=== PATIENT | female | born 1990 | race American Indian/Alaskan Native ===

== ENCOUNTER 2021-11-09 11:34 | Emergency (ER) | payer SELFPAY ==
[2021-11-09] MEDS ORDERED: FAMOTIDINE 20 MG/2 ML INJ IV ONE (11:43)
[2021-11-09] MEDS ORDERED: diphenhydrAMINE 50 MG/ML VIAL IV ONE (11:43)
[2021-11-09] MEDS ORDERED: ALBUTEROL 2.5 MG/3 ML NEBU IH ONE (11:47)
--- NOTE | 2021-11-09 11:47 | Emergency Department Report ---
HPI - General Chief Complaint: Allergic Reaction Time Seen by Provider: 11/09/21 11:43 ED Review of Systems ROS: Stated complaint: EDITH Other details as noted in HPI Critical care attestation.: If time is entered above; I have spent that time in minutes in the direct care of this critically ill patient, excluding procedure time. ED Disposition Condition: Stable
--- NOTE | 2021-11-09 11:51 | Emergency Department Report ---
ED Allergic Reaction HPI - General Chief complaint: Allergic Reaction Stated complaint: EDITH Time Seen by Provider: 11/09/21 11:43 Source: patient Mode of arrival: Stretcher Limitations: No Limitations - History of Present Illness Initial Comments: Patient is 31 years old female with no significant past medical history. Patient brought to the emergency room via EMS from home for evaluation of allergic reaction that happened this morning. Patient stated that she bought a guinea pig yesterday. She think this is most likely from him. Patient is comp laining of shortness of breath audible wheezing and mild difficulty swallowing. Patient received albuterol, Solu-Medrol, magnesium sulfate and Benadryl by EMS. Upon arrival to the ER patient stated that she is feeling better. Oxygen saturation is 98% on room air. Exam showed diffuse wheezing. No oral lingual swelling. I added Pepcid and another dose of albuterol. MD Complaint: allergic reaction -: This morning Exposure: other Symptoms: difficulty swallowing, difficulty breathing Severity: moderate Treatment Prior to Arrival: benadryl, bronchodilator, steroids Previous Allergy History: none - Related Data Allergies Allergy/AdvReac Type Severity Reaction Status Date / Time ibuprofen AdvReac Unknown Verified 11/09/21 11:37 ED Review of Systems ROS: Stated complaint: EDITH Other details as noted in HPI Comment: All other systems reviewed and negative Constitutional: denies: chills, fever Respiratory: shortness of breath, wheezing. denies: cough, SOB with exertion, SOB at rest Cardiovascular: denies: chest pain, palpitations Gastrointestinal: denies: abdominal pain, nausea, vomiting Musculoskeletal: denies: back pain Neurological: denies: headache, weakness ED Physical Exam - General Limitations: No Limitations General appearance: alert, in no apparent distress - Head Head exam: Present: atraumatic, normocephalic, normal inspection - Eye Eye exam: Present: normal appearance - ENT ENT exam: Present: normal exam, normal orophraynx, mucous membranes moist - Respiratory Respiratory exam: Present: wheezes. Absent: rales, rhonchi, accessory muscle use, decreased breath sounds, prolonged expiratory - Cardiovascular Cardiovascular Exam: Present: regular rate, normal rhythm, normal heart sounds - GI/Abdominal GI/Abdominal exam: Present: soft, normal bowel sounds. Absent: distended, tenderness, guarding, rebound, rigid, organomegaly, mass, bruit, pulsatile mass, hernia - Extremities Exam Extremities exam: Present: normal inspection, full ROM, normal capillary refill. Absent: tenderness - Back Exam Back exam: Present: normal inspection, full ROM. Absent: CVA tenderness (R), CVA tenderness (L) - Neurological Exam Neurological exam: Present: alert, oriented X3, CN II-XII intact, normal gait, reflexes normal. Absent: motor sensory deficit - Psychiatric Psychiatric exam: Present: normal mood - Skin Skin exam: Present: warm, intact, normal color ED Course Vital Signs 11/09/21 11/09/21 11/09/21 11:42 11:46 12:00 Pulse Rate 70 82 72 Respiratory 18 20 19 Rate Blood Pressure 123/82 O2 Sat by Pulse 100 98 Oximetry 11/09/21 11/09/21 11/09/21 12:19 12:31 12:45 Pulse Rate 83 84 Respiratory 18 26 H Rate Blood Pressure 123/81 123/81 O2 Sat by Pulse 97 99 98 Oximetry 11/09/21 13:01 Pulse Rate 88 Respiratory 21 Rate Blood Pressure 138/87 O2 Sat by Pulse 96 Oximetry ED Medical Decision Making - Medical Decision Making Patient is 31 years old female with no significant past medical history. Patient brought to the emergency room via EMS from home for evaluation of allergic reaction that happened this morning. Patient stated that she bought a guinea pig yesterday. She think this is most likely from him. Patient is complaining of shortness of breath audible wheezing and mild difficulty swallowing. Patient received albuterol, Solu-Medrol, magnesium sulfate and Benadryl by EMS. Upon arrival to the ER patient stated that she is feeling better. Oxygen saturation is 98% on room air. Exam showed diffuse wheezing. No oral lingual swelling. I added Pepcid and another dose of albuterol. Patient stated that she is feeling much better. No difficulty breathing or difficulty swallowing. Patient given prescription for prednisone, Benadryl and Pepcid. Patient also given EpiPen. Patient advised to follow-up with her primary doctor in the next 2 to 3 days and to return to the ER if she develop any new symptoms. Critical care attestation.: If time is entered above; I have spent that time in minutes in the direct care of this critically ill patient, excluding procedure time. ED Disposition Clinical Impression: Acute allergic reaction Disposition: HOME / SELF CARE / HOMELESS Is pt being admited?: No Condition: Stable Instructions: Allergies, Adult, [id number] Referrals: PRIMARY CARE,MD [Primary Care Provider] - 3-5 Days
[2021-11-09 14:38] VITALS: BP 124/82
== END 2021-11-09 14:44 | disposition home or self-care (01) ==
LOC: ED 11:34
DX: T78.40XA Allergy, unspecified, initial encounter (principal); Z88.6 Allergy status to analgesic agent; Z79.899 Other long term (current) drug therapy; X58.XXXA Exposure to other specified factors, initial encounter
CPT/HCPCS: 94640; 96374; 96375; 99283; J1200; J3490

== ENCOUNTER 2022-01-11 15:12 | Inpatient (IN) | payer MEDICAID, OTHER ==
[2022-01-11] MEDS ORDERED: MORPHINE 4 MG/1 ML INJ ONE (15:21)
[2022-01-11] MEDS ORDERED: ONDANSETRON 4 MG/2 ML INJ ONE (15:24)
--- NOTE | 2022-01-11 15:36 | Emergency Department Report ---
ED Animal Bite HPI - General Chief Complaint: Animal Bite Stated Complaint: SNAKE BITE Time Seen by Provider: 01/11/22 15:20 Source: patient, family Mode of arrival: Ambulatory Limitations: No Limitations - History of Present Illness Initial Comments: 31 yo F brought in by EMS with snake bite at her animal [employer] store. According to patient someone brought in a small snake caught in the yard and wanted it to be identified. Pt opened the jar picked up the snake at its tail to identify whether male or female but unfortunately the snake turned around and bit her wrist. Bleeding is minimal due to direct pressure. The incidence occurred about an hour before she present to the ED. She now c/o swelling with pain. Swelling started at the point of bite and now spreading to her elbow. She denies any sob or palpitation or chest pain. No other modifying or associated factors. MD Complaint: animal bite - Related Data Previous Rx's Medication Instructions Recorded Last Taken Type EPINEPHrine [Epipen] 0.3 mg IJ ONCE #1 11/09/21 Unknown Rx Famotidine [Pepcid] 40 mg PO QHS #5 tablet 11/09/21 Unknown Rx Prednisone [predniSONE 10 mg 10 mg PO .TAPER #1 tab.ds.pk 11/09/21 Unknown Rx (6-Day Pack, 21 Tabs)] diphenhydrAMINE [Benadryl CAP] 25 mg PO Q8HR PRN #20 capsule 11/09/21 Unknown Rx Allergies Allergy/AdvReac Type Severity Reaction Status Date / Time ibuprofen AdvReac Unknown Verified 01/11/22 15:26 ED Review of Systems ROS: Stated complaint: SNAKE BITE Other details as noted in HPI Comment: All other systems reviewed and negative Musculoskeletal: arthralgia, myalgia (right forearm swelling with pain ) ED Past Medical Hx - Past Medical History Previous Medical History?: No - Surgical History Past Surgical History?: Yes Additional Surgical History: , T&A - Social History Smoking Status: Never Smoker Substance Use Type: Marijuana - Medications Home Medications: Home Medications Medication Instructions Recorded Confirmed Last Taken Type EPINEPHrine [Epipen] 0.3 mg IJ ONCE #1 11/09/21 Unknown Rx Famotidine [Pepcid] 40 mg PO QHS #5 tablet 11/09/21 Unknown Rx Prednisone [predniSONE 10 mg 10 mg PO .TAPER #1 tab.ds.pk 11/09/21 Unknown Rx (6-Day Pack, 21 Tabs)] diphenhydrAMINE [Benadryl CAP] 25 mg PO Q8HR PRN #20 capsule 11/09/21 Unknown Rx ED Physical Exam - General Limitations: No Limitations General appearance: alert, in no apparent distress - ENT ENT exam: Present: normal exam, normal orophraynx, mucous membranes moist - Neck Neck exam: Present: normal inspection, full ROM - Respiratory Respiratory exam: Present: normal lung sounds bilaterally. Absent: respiratory distress, accessory muscle use - Cardiovascular Cardiovascular Exam: Present: regular rate, normal rhythm, normal heart sounds - GI/Abdominal GI/Abdominal exam: Present: soft, normal bowel sounds. Absent: tenderness - Extremities Exam Extremities exam: Present: tenderness (right media aspect of wrist ) - Back Exam Back exam: Absent: tenderness - Neurological Exam Neurological exam: Present: alert, oriented X3 - Psychiatric Psychiatric exam: Present: normal mood - Skin Skin exam: Present: warm, normal color ED Course Vital Signs 01/11/22 01/11/22 01/11/22 15:16 15:33 15:38 Temperature 98.9 F Pulse Rate 100 H 80 Respiratory 20 10 L 12 Rate Blood Pressure Blood Pressure [Left] Blood Pressure 113/71 [Right] O2 Sat by Pulse 99 98 98 Oximetry 01/11/22 01/11/22 01/11/22 15:46 16:00 16:16 Temperature Pulse Rate 80 78 69 Respiratory 14 29 H 13 Rate Blood Pressure Blood Pressure [Left] Blood Pressure [Right] O2 Sat by Pulse 93 93 96 Oximetry 01/11/22 01/11/22 01/11/22 16:30 16:46 17:00 Temperature Pulse Rate 117 H 80 77 Respiratory 42 H 16 17 Rate Blood Pressure Blood Pressure [Left] Blood Pressure [Right] O2 Sat by Pulse 94 93 94 Oximetry 01/11/22 01/11/22 01/11/22 17:16 17:30 17:54 Temperature Pulse Rate 77 76 86 Respiratory 11 L 14 19 Rate Blood Pressure 92/52 99/58 99/58 Blood Pressure [Left] Blood Pressure [Right] O2 Sat by Pulse 99 96 Oximetry 01/11/22 01/11/22 01/11/22 18:00 18:16 18:30 Temperature Pulse Rate 81 87 93 H Respiratory 13 14 15 Rate Blood Pressure 110/77 121/82 118/82 Blood Pressure [Left] Blood Pressure [Right] O2 Sat by Pulse 98 98 97 Oximetry 01/11/22 01/11/22 01/11/22 18:46 19:00 19:16 Temperature Pulse Rate 72 77 81 Respiratory 13 14 12 Rate Blood Pressure 123/86 107/68 93/57 Blood Pressure [Left] Blood Pressure [Right] O2 Sat by Pulse 96 95 93 Oximetry 01/11/22 01/11/22 01/11/22 19:30 19:46 20:00 Temperature Pulse Rate 80 82 76 Respiratory 17 17 12 Rate Blood Pressure 102/51 103/57 92/44 Blood Pressure [Left] Blood Pressure [Right] O2 Sat by Pulse 97 96 94 Oximetry 01/11/22 01/11/22 01/11/22 20:16 20:46 21:20 Temperature Pulse Rate 74 75 87 Respiratory 13 14 11 L Rate Blood Pressure 101/46 95/55 101/73 Blood Pressure [Left] Blood Pressure [Right] O2 Sat by Pulse 96 97 Oximetry 01/11/22 01/11/22 21:30 21:52 Temperature Pulse Rate 84 87 Respiratory 18 11 L Rate Blood Pressure 98/73 Blood Pressure 101/73 [Left] Blood Pressure [Right] O2 Sat by Pulse 99 99 Oximetry - Reevaluation(s) Reevaluation #1: 01/11/22 15:45 here with right wrist snake bite-- with appreciable swellings and pain to the mid elbow-- will go ahead and irrigate the site with normal saline, given Morphine 4 mg IV x 1 for pain and zofran for pain-- Poison control consulted -- and -did not recommend given antivenom at this point since the bite was about an hour ago and the swelling still not at the elbow at this time. They wanted patient monitor however, and to order CBC,CMP, Coag level and fibrinogen and CPK and to have this repeated in 6 hours. They also suggested checking the swelling and circumference of the swelling every 15 minutes. 01/11/22 15:53 Reevaluation #2: 01/11/22 16:32 Noted pain and swelling spreading to the elbow and Crofab reordered immediately and poison control updated. She required that I call to update her when the initial 4 vial is completed. Reevaluation #3: 01/11/22 16:40 Shortly after started the vial of Crofab patient reports itching and became tachycardic. An ekg ordered and was given Benadryl 50 mg Iv x 1-- Reevaluation #4: 01/11/22 18:52 Got a call from the poison control for update-- pt is sleeping at this point, with improvement in her swelling no progressing pass the elbow. She has completed the initial 4 vial of Crofab. Poison control emphasis the need for maintenance dose 2 vial at 6 hours, then 2 vials at 12 hours and then 2 vials at 18 hours and patient needed to be monitored for 6-8 hours after completion of all vials. Dr Fairbanks consulted and he accept patient for further evaluation and treatment. Critical Care Time: Yes Critical care time in (mins) excluding proc time.: 60 Critical care attestation.: If time is entered above; I have spent that time in minutes in the direct care of this critically ill patient, excluding procedure time. This patient present with snake bite with bite on the wrist and with appreciable swellings and became tachycardia and was started on Crofab and due to high probability of clinically significant, life threatening deterioration, this patient required my highest level of preparedness to intervene emergently and I personally spent this critical care time directly and personally managing this patient. This critical care time included obtaining a history; examining this patient; pulse oximetry ; ordering and review of studies ; arranging urgent treatment with development of a management plan ; evaluation of patient's response to treatment ; frequent reassessment ; and, discussion with other providers. This critical care time was performed to assess and manage the high probability of imminent, life-threatening deterioration that could result in multiple organ damage if not done in a timely fashion. Critical Care Time: 60 ED Disposition Clinical Impression: Snake bites Qualifiers: Encounter type: initial encounter Qualified Code(s): W59.11XA - Bitten by nonvenomous snake, initial encounter Disposition: ADMITTED INPATIENT Is pt being admited?: Yes Does the pt Need Aspirin: No Condition: Stable Time of Disposition: 23:41
[2022-01-11] MEDS ORDERED: ONDANSETRON 4 MG/2 ML INJ IV ONE (15:52)
[2022-01-11] MEDS ORDERED: MORPHINE 4 MG/1 ML INJ IV ONE (15:52)
[2022-01-11] MEDS ORDERED: HYDROmorphone 0.5 MG/0.5 ML INJ IV ONE (15:54)
[2022-01-11] MEDS ORDERED: [UNRECOGNIZED DRUG - OTHER] IV ONE ×2 (16:00→17:00)
[2022-01-11] MEDS ORDERED: SODIUM CHLORIDE 0.9% 1000 ML 1,000 ML IV ONE (16:00)
[2022-01-11] MEDS ORDERED: SODIUM CHLORIDE IV ONE ×2 (16:00→17:00)
[2022-01-11] MEDS ORDERED: diphenhydrAMINE 50 MG/ML VIAL ONE (16:25)
[2022-01-11 16:42] LABS: Basophils # (Auto) 0.1 K/mm3 (0.0-0.1); Basophils % (Auto) 0.8 % (0.0-1.8); Eosinophils # (Auto) 0.3 K/mm3 (0.0-0.4); Eosinophils % (Auto) 3.5 % (0.0-4.3); Hemoglobin 13.2 gm/dl (10.1-14.3); Lymphocytes # (Auto) 2.3 K/mm3 (1.2-5.4); Lymphocytes % (Auto) 30.4 % (13.4-35.0); Mean Corpuscular HGB Conc 34 % (30-34); Mean Corpuscular Volume 97 fl (79-97); Monocytes # (Auto) 0.5 K/mm3 (0.0-0.8); Platelet Count 249 K/mm3 (140-440); Red Cell Distribution Width 13.7 % (13.2-15.2)
[2022-01-11 16:54] LABS: INR 0.97 (0.87-1.13)
[2022-01-11 16:55] LABS: Partial Thromboplastin Time 28.5 Sec. (24.2-36.6)
[2022-01-11 17:07] LABS: Alanine Aminotransferase 12 units/L (7-56); Albumin 4.1 g/dL (3.9-5); Blood Urea Nitrogen 16 mg/dL (7-17); Calcium 9.1 mg/dL (8.4-10.2); Hemolysis Index 5
[2022-01-11 17:09] LABS: BUN/Creatinine Ratio 23
[2022-01-11] MEDS ORDERED: ACETAMINOPHEN 325 MG TAB PO PRN ×2 (18:58→20:20)
[2022-01-11] MEDS ORDERED: MORPHINE 2 MG/1 ML INJ IV PRN (18:58)
[2022-01-11] MEDS ORDERED: METOCLOPRAMIDE 10 MG/2 ML INJ IV PRN (20:20)
[2022-01-11] MEDS ORDERED: ONDANSETRON 4 MG/2 ML INJ IV PRN (20:20)
--- NOTE | 2022-01-11 20:31 | History and Physical Report ---
History of Present Illness Date of examination: 01/11/22 Date of admission: 01/11/2022 Chief complaint: [place] snake bite History of present illness: 31 yo F brought in by EMS with snake bite at her animal pet store. According to patient someone brought a small snake caught in the yard. The snake was in a glass jar and wanted it to be identified. Pt opened the jar picked up the snake at its tail to identify whether male or female but unfortunately the snake t urned around and bit her Rt wrist. Bleeding is minimal due to direct pressure. The incidence occurred about an hour before she present to the ED. She now c/o swelling with pain. Swelling started at the point of bite and now spreading to her elbow. She denies any sob or palpitation or chest pain. No other modifying or associated factors. MD Complaint: animal bite ED course: Poison control was contacted and the recommendations for infusion of CroFab (antivenom )was given initially repeated by another CroFab in 30 minutes the CroFab sequences were reordered as per the poison control schedule suggestion. Recommendations were faxed and placed on the chart. Epinephrine and Benadryl were given. Patient lying comfortably and texting her friends. Patient is nonchalant - Past Medical History --Previous Medical History?: No - Surgical History --Past Surgical History?: Yes --Additional Surgical History: , T&A -Family history --Htn - Social History Smoking Status: Never Smoker Substance Use Type: Marijuana - Medications Home Medications: Home Medications Medication Instructions Recorded Confirmed Last Taken Type EPINEPHrine [Epipen] 0.3 mg IJ ONCE #1 11/09/21 Unknown Rx Famotidine [Pepcid] 40 mg PO QHS #5 tablet 11/09/21 Unknown Rx Prednisone [predniSONE 10 mg 10 mg PO .TAPER #1 tab.ds.pk 11/09/21 Unknown Rx (6-Day Pack, 21 Tabs)] diphenhydrAMINE [Benadryl CAP] 25 mg PO Q8HR PRN #20 capsule 11/09/21 Unknown Rx Review of Systems ROS: Constitutional no weight loss or weight gain no fever or chills HEENT no sore throat no post nasal drip no diplopia Neck no neck stiffness no lymph gland enlargement Chest and lungs no shortness of breath cough or wheezing CVS no chest pain no diaphoresis no palpitations GI no nausea no vomiting no diarrhea Genitourinary system no dysuria no flank pain Musculoskeletal system swelling of the right hand up to the mid forearm. 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 Skin no rash no itching Psychiatric no depression no homicidal or suicidal tendencies Hematologic no lymphedema or bruising Endocrine no polydipsia no polyuria no cold intolerance no heat intolerance Medications and Allergies Allergies Allergy/AdvReac Type Severity Reaction Status Date / Time ibuprofen AdvReac Unknown Verified 01/11/22 15:26 Home Medications Medication Instructions Recorded Confirmed Last Taken Type EPINEPHrine [Epipen] 0.3 mg IJ ONCE #1 11/09/21 Unknown Rx Famotidine [Pepcid] 40 mg PO QHS #5 tablet 11/09/21 Unknown Rx Prednisone [predniSONE 10 mg 10 mg PO .TAPER #1 tab.ds.pk 11/09/21 Unknown Rx (6-Day Pack, 21 Tabs)] diphenhydrAMINE [Benadryl CAP] 25 mg PO Q8HR PRN #20 capsule 11/09/21 Unknown Rx Active Meds: Active Medications Acetaminophen (Acetaminophen 325 Mg Tab) 650 mg PO Q6H PRN PRN Reason: Pain MILD(1-3)/Fever >100.5/HUSSEIN Morphine Sulfate (Morphine 2 Mg/1 Ml Inj) 2 mg IV Q4H PRN PRN Reason: Pain, Moderate (4-6) Sodium Chloride (Sodium Chloride 0.9% 10 Ml Flush Syringe) 10 ml IV BID HOLLY Sodium Chloride (Sodium Chloride 0.9% 10 Ml Flush Syringe) 10 ml IV PRN PRN PRN Reason: LINE FLUSH Exam - Constitutional Vitals: Temp Pulse Resp BP Pulse Ox 98.9 F 74 13 101/46 96 01/11/22 15:16 01/11/22 20:16 01/11/22 20:16 01/11/22 20:16 01/11/22 20:16 General appearance: Present: no acute distress, well-nourished - EENT Eyes: Present: PERRL ENT: hearing intact, clear oral mucosa - Neck Neck: Present: supple, normal ROM - Respiratory Respiratory effort: normal Respiratory: bilateral: CTA - Cardiovascular Heart rate: 78 Rhythm: regular Heart Sounds: Present: S1 & S2. Absent: rub, click - Extremities Extremities: pulses symmetrical, No edema, abnormal (Right hand and right forearm swollen on the dorsal aspect up to distal one third of the forearm the amount of swelling was marked to see the progression or regression) Extremity abnormal: other Peripheral Pulses: within normal limits - Abdominal General gastrointestinal: Present: soft, non-tender, non-distended, normal bowel sounds Female genitourinary: Present: normal - Integumentary Integumentary: Present: clear, warm, dry - Musculoskeletal Musculoskeletal: gait normal, strength equal bilaterally - Psychiatric Psychiatric: appropriate mood/affect, intact judgment & insight - Neurologic Neurologic: CNII-XII intact, moves all extremities HEART Score - HEART Score History: Slightly suspicious EKG: Non-specific Age: < 45 Risk factors: No known risk factors Troponin: Troponin T < 0.010 ng/mL (0.00-0.029) 01/11/22 16:07 Troponin: < normal limit HEART Score: 1 - Critical Actions Critical Actions: 0-3 pts:0.9-1.7%risk of adverse cardiac event.Candidate for discharge Results - Labs CBC & Chem 7: 01/11/22 23:02 01/11/22 23:02 Labs: Laboratory Last Values WBC 7.4 K/mm3 (4.5-11.0) 01/11/22 16:07 RBC 4.00 M/mm3 (3.65-5.03) 01/11/22 16:07 Hgb 13.2 gm/dl (10.1-14.3) 01/11/22 16:07 Hct 39.0 % (30.3-42.9) 01/11/22 16:07 MCV 97 fl (79-97) 01/11/22 16:07 MCH 33 pg (28-32) H 01/11/22 16:07 MCHC 34 % (30-34) 01/11/22 16:07 RDW 13.7 % (13.2-15.2) 01/11/22 16:07 Plt Count 249 K/mm3 (140-440) 01/11/22 16:07 Lymph % (Auto) 30.4 % (13.4-35.0) 01/11/22 16:07 Stephenson % (Auto) 7.0 % (0.0-7.3) 01/11/22 16:07 Eos % (Auto) 3.5 % (0.0-4.3) 01/11/22 16:07 Baso % (Auto) 0.8 % (0.0-1.8) 01/11/22 16:07 Lymph # (Auto) 2.3 K/mm3 (1.2-5.4) 01/11/22 16:07 Stephenson # (Auto) 0.5 K/mm3 (0.0-0.8) 01/11/22 16:07 Eos # (Auto) 0.3 K/mm3 (0.0-0.4) 01/11/22 16:07 Baso # (Auto) 0.1 K/mm3 (0.0-0.1) 01/11/22 16:07 Seg Neutrophils % 58.3 % (40.0-70.0) 01/11/22 16:07 Seg Neutrophils # 4.3 K/mm3 (1.8-7.7) 01/11/22 16:07 PT 13.9 Sec. (12.2-14.9) 01/11/22 16:07 INR 0.97 (0.87-1.13) 01/11/22 16:07 APTT 28.5 Sec. (24.2-36.6) 01/11/22 16:07 Fibrinogen 409 mg/dl (211-480) 01/11/22 16:07 Sodium 140 mmol/L (137-145) 01/11/22 16:07 Potassium 4.0 mmol/L (3.6-5.0) 01/11/22 16:07 Chloride 106.5 mmol/L (98-107) 01/11/22 16:07 Carbon Dioxide 21 mmol/L (22-30) L 01/11/22 16:07 Anion Gap 17 mmol/L 01/11/22 16:07 BUN 16 mg/dL (7-17) 01/11/22 16:07 Creatinine 0.7 mg/dL (0.6-1.2) 01/11/22 16:07 Estimated GFR > 60 ml/min 01/11/22 16:07 BUN/Creatinine Ratio 23 % 01/11/22 16:07 Glucose 96 mg/dL (65-100) 01/11/22 16:07 Lactic Acid 0.60 mmol/L (0.7-2.0) L 01/11/22 16:07 Calcium 9.1 mg/dL (8.4-10.2) 01/11/22 16:07 Total Bilirubin 0.20 mg/dL (0.1-1.2) 01/11/22 16:07 AST 20 units/L (5-40) 01/11/22 16:07 ALT 12 units/L (7-56) 01/11/22 16:07 Alkaline Phosphatase 50 units/L (35-129) 01/11/22 16:07 Total Creatine Kinase 291 units/L (30-135) H 01/11/22 16:07 Troponin T < 0.010 ng/mL (0.00-0.029) 01/11/22 16:07 NT-Pro-B Natriuret Pep 62.30 pg/mL (0-450) 01/11/22 16:07 Total Protein 7.0 g/dL (6.3-8.2) 01/11/22 16:07 Albumin 4.1 g/dL (3.9-5) 01/11/22 16:07 Albumin/Globulin Ratio 1.4 % 01/11/22 16:07 Short CBC 01/11/22 01/11/22 Range/Units 16:07 23:02 WBC 7.4 8.9 (4.5-11.0) K/mm3 Hgb 13.2 13.9 (10.1-14.3) gm/dl Hct 39.0 41.4 (30.3-42.9) % Plt Count 249 253 (140-440) K/mm3 BMP 01/11/22 01/11/22 16:07 23:02 Sodium 140 140 Potassium 4.0 3.9 Chloride 106.5 108.0 H Carbon Dioxide 21 L 19 L BUN 16 16 Creatinine 0.7 0.7 Glucose 96 116 H Calcium 9.1 8.2 L Cardiac Enzymes 01/11/22 01/11/22 Range/Units 16:07 16:07 Total Creatine Kinase 291 H (30-135) units/L Troponin T < 0.010 (0.00-0.029) ng/mL Liver Function 01/11/22 Range/Units 16:07 Total Bilirubin 0.20 (0.1-1.2) mg/dL AST 20 (5-40) units/L ALT 12 (7-56) units/L Alkaline Phosphatase 50 (35-129) units/L Albumin 4.1 (3.9-5) g/dL Assessment and Plan Assessment and plan: Critical care statement The high probability OF a clinically significant sudden or life-threatening deterioration of the cardiorespiratory system and endocrine system required my full and direct attention, intervention and postoperative management. The aggregate critical care time was 40 minutes. The time is in addition to time spent performing reported procedures but includes the followin: Data review and interpretation 2: Patient assessment and monitoring of vital signs 3: Documentation 4:: Medication orders and management Advance Directives: Yes (Full code) - Patient Problems (1) Snake bites Current Visit: Yes Status: Acute Qualifiers: Encounter type: initial encounter Qualified Code(s): W59.11XA - Bitten by nonvenomous snake, initial encounter Plan to address problem: Patient was bitten by copperhead IV CroFab was given as recommended by the poison control For was of CroFab and given. CroFab was antivenin. Scheduled for CroFab infusion on the chart additional 2 hours of CroFab at 6 hours after end of infusion if swelling is extending and after 2 hours of CroFab at 12 hours after end of the infusion and 2 hours of CroFab at 88 hours (defensive. In summary 2 vials every 6 hours for 3 doses. Never injected anticoagulant into the site of infection 8 PT PTT platelet count and fibrinogen requested for a.m. Follow-up with poison control and the recommendations. 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 Patient is full code. Patient acknowledges understanding and agreement with care plan +30 minutes.
[2022-01-11] MEDS: SODIUM CHLORIDE 0.9% 1000 ML 1,000 ML IV SCH (22:13)
[2022-01-11] MEDS: MORPHINE 2 MG/1 ML INJ IV PRN (22:16)
[2022-01-11] MEDS: [UNRECOGNIZED DRUG - OTHER] IV SCH (23:03)
[2022-01-11] MEDS: SODIUM CHLORIDE IV SCH (23:03)
[2022-01-11 23:20] LABS: Hematocrit 41.4 % (30.3-42.9); Hemoglobin 13.9 gm/dl (10.1-14.3); Mean Corpuscular HGB Conc 34 % (30-34); Mean Corpuscular Volume 98 fl (79-97); Platelet Count 253 K/mm3 (140-440); Red Blood Count 4.24 M/mm3 (3.65-5.03); Red Cell Distribution Width 13.6 % (13.2-15.2)
[2022-01-11 23:34] LABS: INR 1.09 (0.87-1.13)
[2022-01-11 23:35] LABS: Partial Thromboplastin Time 26.4 Sec. (24.2-36.6)
[2022-01-11 23:37] LABS: Blood Urea Nitrogen 16 mg/dL (7-17); Calcium 8.2 mg/dL (8.4-10.2); Hemolysis Index 12
[2022-01-11 23:40] LABS: BUN/Creatinine Ratio 23
[2022-01-12] MEDS ORDERED: diphenhydrAMINE 50 MG/ML VIAL IV STA ×2 (00:52→05:25)
[2022-01-12] MEDS: MORPHINE 2 MG/1 ML INJ IV PRN ×3 (04:17→19:53)
[2022-01-12] MEDS: SODIUM CHLORIDE IV SCH ×2 (05:15→11:26)
[2022-01-12] MEDS: [UNRECOGNIZED DRUG - OTHER] IV SCH ×2 (05:15→11:26)
[2022-01-12 06:37] LABS: Basophils % (Auto) 0.7 % (0.0-1.8); Eosinophils # (Auto) 0.1 K/mm3 (0.0-0.4); Eosinophils % (Auto) 1.9 % (0.0-4.3); Hematocrit 38.8 % (30.3-42.9); Hemoglobin 12.8 gm/dl (10.1-14.3); Lymphocytes # (Auto) 1.7 K/mm3 (1.2-5.4); Lymphocytes % (Auto) 27.1 % (13.4-35.0); Mean Corpuscular HGB Conc 33 % (30-34); Mean Corpuscular Volume 98 fl (79-97); Monocytes # (Auto) 0.3 K/mm3 (0.0-0.8); Monocytes % (Auto) 5.2 % (0.0-7.3); Platelet Count 237 K/mm3 (140-440); Red Blood Count 3.96 M/mm3 (3.65-5.03); Red Cell Distribution Width 13.3 % (13.2-15.2)
[2022-01-12 06:42] LABS: INR 1.1 (0.87-1.13); Partial Thromboplastin Time 26.3 Sec. (24.2-36.6)
[2022-01-12 06:59] LABS: Alanine Aminotransferase 9 units/L (7-56); Albumin 3.3 g/dL (3.9-5); Blood Urea Nitrogen 12 mg/dL (7-17); Calcium 8.1 mg/dL (8.4-10.2); Hemolysis Index 1
[2022-01-12 07:16] LABS: BUN/Creatinine Ratio 17
[2022-01-12] MEDS: HYDROmorphone 0.5 MG/0.5 ML INJ IV PRN ×3 (08:32→21:27)
--- NOTE | 2022-01-12 08:57 | Electrocardiograph Report ---
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
[2022-01-12] MEDS: SODIUM CHLORIDE 0.9% 1000 ML 1,000 ML IV SCH ×2 (09:50→19:55)
[2022-01-12] MEDS ORDERED: diphenhydrAMINE 50 MG/ML VIAL IV SCH (11:45)
--- NOTE | 2022-01-12 12:05 | Progress Note ---
<JOSUEBOO PatienceTj - Last Filed: 01/12/22 13:22> Assessment and Plan Assessment and plan: This is a 31-year-old female admitted s/p snake bite Neuro: NAD -Avoid delirium -Reorientation as needed -Maintain sleep-wake cycle -As needed analgesia Cardiac: NAD -Blood pressure monitoring per protocol Respiratory: Acute hypoxic respiratory failure -Currently on NC -Wean as tolerated -Pulmanory hygenie -SPO2 monitoring GI: Obesity, mild protein calorie manutriton -PPI -Regular diet -BR: colace : Hyperchloremic metabolic acidosis, mild rhabdomyolysis -Record intake and output -Avoid nephrotoxic medications -MIVF -Trend CMP and CK ID: s/p snake bite -CCM and vascular surgery consulted, appreciate recommendations -Patient states she was bite by copperhead snake -Poison control contacted -CroFab 4 vials x 1->1625 01/11 -Crofab 2 vials at 6hr of initial dose -Crofab 2 vials at 12 hours of initial dose -Crofab 2 vials at 18 hours of initial dose -Trend CMP, CK, Fibrinogen, Coags and CBC q 6hrs per poison control -RUE measures q 4 hours -Neurovasuclar check q 2 hrs, monitor for compartment syndrome -Patient complained of pain to elbow, numbness from elbow to shoulder, and pain in armpit -communicated to poison control who recommended immobilization and elevation -sling applied -Surgery consult if needed for compartment syndrome -f/u blood culture -Monitor WBC and temperature curve Endo: NAD -Avoid hypoglycemia Heme: NAD -Trend CBC -Transfuse hemoglobin less than 7 -Monitor for signs of bleeding -Lovenox subq -SCDs to BLE while in bed The high probability of a clinically significant, sudden or life threatening deterioration of the [MS] system(s) required my full and direct attention, int ervention and personal management. The aggregate critical care time was [60] minutes. This time is in addition to time spent performing reported procedures but includes the following: [x] Data Review and interpretation [x] Patient assessment and monitoring of vital signs [x] Documentation [x] Medication orders and management Disposition Plan: icu Total Time Spent with Patient (Minutes): 60 History Interval history: This is a 31-year-old female who presents the emergency department via EMS after a she sustained a snake bite with complaints of swelling and pain starting shortly after the bite and spreading up her arm. ED contacted poison control and recommendations of infusion of CroFab 3 doses. After the administration of dose 1 patient was noted to have swelling and was given epinephrine and Benadryl. Lab work revealed hyperchloremic metabolic acidosis and slightly elevated CK. She received 1 L LR Normal Saline bolus in the ED. Patient was admitted to the hospital service with consults to critical care for close monitoring. Hospital course to date: 01/12: Patient complaining of pain to elbow, numbness from elbow to shoulder and pain in armpit of right upper extremity. Cap refill less than 3 seconds, peripheral pulses palpable. Poison control contacted and recommendations were made to elevate the arm and immobilize. Sling ordered. Neurovascular checks every 2 with serial labs (CMP/CBC/PT/INR/CK). Patient scheduled to receive last dose of CroFab this AM. Hospitalist Physical - Constitutional Vitals: Temp Pulse Resp BP Pulse Ox 97.9 F 71 15 101/57 99 01/12/22 08:00 01/12/22 10:00 01/12/22 10:00 01/12/22 10:00 01/12/22 10:00 General appearance: Present: no acute distress, well-nourished - EENT Eyes: Present: PERRL, EOM intact ENT: hearing intact, clear oral mucosa - Neck Neck: Present: normal ROM - Respiratory Respiratory effort: normal Respiratory: bilateral: CTA - Cardiovascular Rhythm: regular Heart Sounds: Present: S1 & S2. Absent: systolic murmur, diastolic murmur - Extremities Extremities: no ischemia, pulses intact, pulses symmetrical Extremity abnormal: edema, erythema, tenderness Peripheral Pulses: abnormal - Peripheral pulses radial pulse Pulse Strength: 2+ - Abdominal General gastrointestinal: soft, non-tender, non-distended, normal bowel sounds - Integumentary Integumentary: Present: warm, dry - Psychiatric Psychiatric: cooperative - Neurologic Neurologic: CNII-XII intact, no focal deficits, moves all extremities - Allied Health Allied health notes reviewed: nursing, social work HEART Score - HEART Score EKG: Non-specific Age: < 45 Risk factors: No known risk factors Troponin: Troponin T < 0.010 ng/mL (0.00-0.029) 01/11/22 16:07 Troponin: < normal limit - Critical Actions Critical Actions: 0-3 pts:0.9-1.7%risk of adverse cardiac event.Candidate for discharge Results - Labs CBC & Chem 7: 01/12/22 13:05 01/12/22 06:20 Labs: Laboratory Last Values WBC 6.4 K/mm3 (4.5-11.0) 01/12/22 06:20 RBC 3.96 M/mm3 (3.65-5.03) 01/12/22 06:20 Hgb 12.8 gm/dl (10.1-14.3) 01/12/22 06:20 Hct 38.8 % (30.3-42.9) 01/12/22 06:20 MCV 98 fl (79-97) H 01/12/22 06:20 MCH 32 pg (28-32) 01/12/22 06:20 MCHC 33 % (30-34) 01/12/22 06:20 RDW 13.3 % (13.2-15.2) 01/12/22 06:20 Plt Count 237 K/mm3 (140-440) 01/12/22 06:20 Lymph % (Auto) 27.1 % (13.4-35.0) 01/12/22 06:20 Woodruff % (Auto) 5.2 % (0.0-7.3) 01/12/22 06:20 Eos % (Auto) 1.9 % (0.0-4.3) 01/12/22 06:20 Baso % (Auto) 0.7 % (0.0-1.8) 01/12/22 06:20 Lymph # (Auto) 1.7 K/mm3 (1.2-5.4) 01/12/22 06:20 Woodruff # (Auto) 0.3 K/mm3 (0.0-0.8) 01/12/22 06:20 Eos # (Auto) 0.1 K/mm3 (0.0-0.4) 01/12/22 06:20 Baso # (Auto) 0.0 K/mm3 (0.0-0.1) 01/12/22 06:20 Seg Neutrophils % 65.1 % (40.0-70.0) 01/12/22 06:20 Seg Neutrophils # 4.1 K/mm3 (1.8-7.7) 01/12/22 06:20 PT 15.5 Sec. (12.2-14.9) H 01/12/22 06:20 INR 1.10 (0.87-1.13) 01/12/22 06:20 APTT 26.3 Sec. (24.2-36.6) 01/12/22 06:20 Fibrinogen 319 mg/dl (211-480) 01/12/22 06:20 Sodium 139 mmol/L (137-145) 01/12/22 06:20 Potassium 4.1 mmol/L (3.6-5.0) 01/12/22 06:20 Chloride 108.1 mmol/L (98-107) H 01/12/22 06:20 Carbon Dioxide 21 mmol/L (22-30) L 01/12/22 06:20 Anion Gap 14 mmol/L 01/12/22 06:20 BUN 12 mg/dL (7-17) 01/12/22 06:20 Creatinine 0.7 mg/dL (0.6-1.2) 01/12/22 06:20 Estimated GFR > 60 ml/min 01/12/22 06:20 BUN/Creatinine Ratio 17 % 01/12/22 06:20 Glucose 109 mg/dL (65-100) H 01/12/22 06:20 Lactic Acid 0.60 mmol/L (0.7-2.0) L 01/11/22 16:07 Calcium 8.1 mg/dL (8.4-10.2) L 01/12/22 06:20 Total Bilirubin 0.50 mg/dL (0.1-1.2) 01/12/22 06:20 AST 14 units/L (5-40) 01/12/22 06:20 ALT 9 units/L (7-56) 01/12/22 06:20 Alkaline Phosphatase 41 units/L (35-129) 01/12/22 06:20 Total Creatine Kinase 160 units/L (30-135) H 01/12/22 06:20 Troponin T < 0.010 ng/mL (0.00-0.029) 01/11/22 16:07 NT-Pro-B Natriuret Pep 62.30 pg/mL (0-450) 01/11/22 16:07 Total Protein 5.3 g/dL (6.3-8.2) L D 01/12/22 06:20 Albumin 3.3 g/dL (3.9-5) L 01/12/22 06:20 Albumin/Globulin Ratio 1.7 % 01/12/22 06:20 Active Medications - Current Medications Current Medications: Generic Name Dose Route Start Last Admin Trade Name Freq PRN Reason Stop Dose Admin Acetaminophen 650 mg 01/11/22 20:20 Acetaminophen 325 Mg Tab PO Q4H PRN Pain MILD(1-3)/Fever >100.5/HUSSEIN Diphenhydramine HCl 25 mg 01/12/22 11:45 Diphenhydramine 50 Mg/Ml Vial IV 01/12/22 12:45 ONCE@1145 HOLLY Hydromorphone HCl 0.5 mg 01/11/22 20:20 01/12/22 08:32 Hydromorphone 0.5 Mg/0.5 Ml Inj IV 0.5 mg Q3H PRN Administration Pain , Severe (7-10) Sodium Chloride 1,000 mls @ 125 mls/hr 01/11/22 20:30 01/12/22 09:50 Nacl 0.9% 1000 Ml IV 125 mls/hr DIRECT HOLLY Administration Metoclopramide HCl 10 mg 01/11/22 20:20 Metoclopramide 10 Mg/2 Ml Inj IV Q6H PRN Nausea And Vomiting Morphine Sulfate 2 mg 01/11/22 20:20 01/12/22 11:29 Morphine 2 Mg/1 Ml Inj IV 2 mg Q4H PRN Administration Pain, Moderate (4-6) Ondansetron HCl 4 mg 01/11/22 20:20 Ondansetron 4 Mg/2 Ml Inj IV Q8H PRN Nausea And Vomiting Sodium Chloride 10 ml 01/11/22 22:00 01/12/22 10:26 Sodium Chloride 0.9% 10 Ml Flush Syringe IV 10 ml BID HOLLY Administration Sodium Chloride 10 ml 01/11/22 20:20 Sodium Chloride 0.9% 10 Ml Flush Syringe IV PRN PRN LINE FLUSH Nutrition/Malnutrition Assess - Dietary Evaluation Nutrition/Malnutrition Findings: Nutrition Notes Start: 01/12/22 10:56 Freq: Status: Active Protocol: Document 01/12/22 10:56 NYASIA (Rec: 01/12/22 10:59 NYASIA [id number]) Nutrition Notes Need for Assessment generated from: MD Order,Education Initial or Follow up Brief Note Other Pertinent Diagnosis Snake bite Current Diet Regular Labs/Tests Reviewed Pertinent Medications Reviewed Height 5 ft 2 in Weight 79.4 kg [place] Body Weight (kg) 50.00 BMI 32.0 Weight Status Obese Subjective/Other Information RD consulted for diet education, however, there's no need for diet education at this time (i.e., BP and blood sugar reasonably controlled). Burn Absent Trauma Absent Minimum of two criteria No Is patient on ventilator? No Is Patient Ambulatory and/or Out of Bed Yes REE-([facility]-ambulatory/OOB) [ 1894.425 NUTR.MSJOOB] Kcal/Kg value to use for calculation 18 Approximate Energy Requirements Using 1429 kcal/Kg Calculation Used for Recommendations Kcal/kg Additional Notes Pro needs 2g/kg IBW: 100g/day Fluid needs 1ml/kcal Nutrition Intervention Follow-Up By: 01/16/22 Additional Comments F/U: intakes <BRODY CHU - Last Filed: 01/13/22 16:57> Assessment and Plan Assessment and plan: I saw and evaluated the patient. Discussed with the nurse practitioner and agree with their findings and plan as documented in this note. Hospitalist Physical - Constitutional Vitals: Temp Pulse Resp BP Pulse Ox 98.5 F 76 15 133/79 99 01/13/22 08:00 01/13/22 11:00 01/13/22 11:00 01/13/22 11:00 01/13/22 11:00 HEART Score - HEART Score Troponin: Troponin T < 0.010 ng/mL (0.00-0.029) 01/11/22 16:07 Results - Labs CBC & Chem 7: 01/13/22 07:28 01/13/22 07:28 Labs: Laboratory Last Values WBC 6.0 K/mm3 (4.5-11.0) 01/13/22 07:28 RBC 3.53 M/mm3 (3.65-5.03) L 01/13/22 07:28 Hgb 11.5 gm/dl (10.1-14.3) 01/13/22 07:28 Hct 34.5 % (30.3-42.9) 01/13/22 07:28 MCV 98 fl (79-97) H 01/13/22 07:28 MCH 33 pg (28-32) H 01/13/22 07:28 MCHC 33 % (30-34) 01/13/22 07:28 RDW 13.4 % (13.2-15.2) 01/13/22 07:28 Plt Count 199 K/mm3 (140-440) 01/13/22 07:28 Lymph % (Auto) 38.3 % (13.4-35.0) H 01/13/22 00:07 Woodruff % (Auto) 6.2 % (0.0-7.3) 01/13/22 00:07 Eos % (Auto) 7.0 % (0.0-4.3) H 01/13/22 00:07 Baso % (Auto) 0.4 % (0.0-1.8) 01/13/22 00:07 Lymph # (Auto) 2.5 K/mm3 (1.2-5.4) 01/13/22 00:07 [place]ruff # (Auto) 0.4 K/mm3 (0.0-0.8) 01/13/22 00:07 Eos # (Auto) 0.5 K/mm3 (0.0-0.4) H 01/13/22 00:07 Baso # (Auto) 0.0 K/mm3 (0.0-0.1) 01/13/22 00:07 Seg Neutrophils % 48.1 % (40.0-70.0) 01/13/22 00:07 Seg Neutrophils # 3.1 K/mm3 (1.8-7.7) 01/13/22 00:07 PT 15.3 Sec. (12.2-14.9) H 01/13/22 07:28 INR 1.09 (0.87-1.13) 01/13/22 07:28 APTT 28.0 Sec. (24.2-36.6) 01/13/22 07:28 Fibrinogen 286 mg/dl (211-480) 01/13/22 07:28 Sodium 140 mmol/L (137-145) 01/13/22 07:28 Potassium 3.8 mmol/L (3.6-5.0) 01/13/22 07:28 Chloride 111.6 mmol/L (98-107) H 01/13/22 07:28 Carbon Dioxide 23 mmol/L (22-30) 01/13/22 07:28 Anion Gap 9 mmol/L 01/13/22 07:28 BUN 10 mg/dL (7-17) 01/13/22 07:28 Creatinine 0.6 mg/dL (0.6-1.2) 01/13/22 07:28 Estimated GFR > 60 ml/min 01/13/22 07:28 BUN/Creatinine Ratio 17 % 01/13/22 07:28 Glucose 84 mg/dL (65-100) 01/13/22 07:28 Lactic Acid 0.60 mmol/L (0.7-2.0) L 01/11/22 16:07 Calcium 7.9 mg/dL (8.4-10.2) L 01/13/22 07:28 Total Bilirubin 0.40 mg/dL (0.1-1.2) 01/13/22 07:28 AST 13 units/L (5-40) 01/13/22 07:28 ALT 10 units/L (7-56) 01/13/22 07:28 Alkaline Phosphatase 41 units/L (35-129) 01/13/22 07:28 Total Creatine Kinase 164 units/L (30-135) H 01/13/22 07:28 Troponin T < 0.010 ng/mL (0.00-0.029) 01/11/22 16:07 NT-Pro-B Natriuret Pep 62.30 pg/mL (0-450) 01/11/22 16:07 Total Protein 5.0 g/dL (6.3-8.2) L 01/13/22 07:28 Albumin 3.2 g/dL (3.9-5) L 01/13/22 07:28 Albumin/Globulin Ratio 1.8 % 01/13/22 07:28 Nutrition/Malnutrition Assess - Dietary Evaluation Nutrition/Malnutrition Findings: Nutrition Notes Start: 01/12/22 10:56 Freq: Status: Discharge Protocol: Document 01/12/22 10:56 NYASIA (Rec: 01/12/22 10:59 NYASIA [id number]) Nutrition Notes Need for Assessment generated from: MD Order,Education Initial or Follow up Brief Note Other Pertinent Diagnosis Snake bite Current Diet Regular Labs/Tests Reviewed Pertinent Medications Reviewed Height 5 ft 2 in Weight 79.4 kg [place] Body Weight (kg) 50.00 BMI 32.0 Weight Status Obese Subjective/Other Information RD consulted for diet education, however, there's no need for diet education at this time (i.e., BP and blood sugar reasonably controlled). Burn Absent Trauma Absent Minimum of two criteria No Is patient on ventilator? No Is Patient Ambulatory and/or Out of Bed Yes REE-([facility] or-ambulatory/OOB) [ 1894.425 NUTR.MSJOOB] Kcal/Kg value to use for calculation 18 Approximate Energy Requirements Using 1429 kcal/Kg Calculation Used for Recommendations Kcal/kg Additional Notes Pro needs 2g/kg IBW: 100g/day Fluid needs 1ml/kcal Nutrition Intervention Follow-Up By: 01/16/22 Additional Comments F/U: intakes
--- NOTE | 2022-01-12 12:48 | Event Note ---
Date: 01/12/22 Received a phone call through answering service on 01/11 at 4:[address] Leblanc ER physician regarding young woman who had received a snake bite on the wrist with symptomatic arm swelling. I discussed this with him and informed him that the patient would need to be transferred from the ER to a facility that had orthopedic hand surgery as this is not available at our institution given the risk of necrosis secondary to snakebite. He was in agreement with the plan.
[2022-01-12 13:14] LABS: Basophils % (Auto) 0.2 % (0.0-1.8); Eosinophils # (Auto) 0.3 K/mm3 (0.0-0.4); Eosinophils % (Auto) 5.4 % (0.0-4.3); Hematocrit 38.3 % (30.3-42.9); Hemoglobin 12.4 gm/dl (10.1-14.3); Lymphocytes # (Auto) 2.4 K/mm3 (1.2-5.4); Lymphocytes % (Auto) 38.1 % (13.4-35.0); Mean Corpuscular HGB Conc 33 % (30-34); Mean Corpuscular Volume 100 fl (79-97); Monocytes # (Auto) 0.3 K/mm3 (0.0-0.8); Monocytes % (Auto) 5.5 % (0.0-7.3); Platelet Count 218 K/mm3 (140-440); Red Blood Count 3.86 M/mm3 (3.65-5.03); Red Cell Distribution Width 13.8 % (13.2-15.2)
[2022-01-12 13:28] LABS: INR 1.16 (0.87-1.13)
[2022-01-12 13:32] LABS: Partial Thromboplastin Time 27.2 Sec. (24.2-36.6)
--- NOTE | 2022-01-12 13:36 | Consultation ---
History of Present Illness - Reason for Consult Consult date: 01/12/22 Snake Bite - History of Present Illness 31 y/o female, who works at [employer], presented to the ED with snake bite. Someone caught the snake and brought it to her to identify. Snake then bit her. She had pain and developed swelling in the right arm. Came to ED. Got antivenom and some benadryl. Overnight serial measurements showed improvement in size of arm. 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 Today still has pain but improving. Remainder is negative. Medications and Allergies Allergies Allergy/AdvReac Type Severity Reaction Status Date / Time ibuprofen Allergy Unknown Verified 01/12/22 07:26 iodine Allergy Unknown Verified 01/12/22 07:26 shellfish derived Allergy Unknown Verified 01/12/22 07:26 Home Medications Medication Instructions Recorded Confirmed Last Taken Type EPINEPHrine [Epipen] 0.3 mg IJ ONCE #1 11/09/21 Unknown Rx Famotidine [Pepcid] 40 mg PO QHS #5 tablet 11/09/21 Unknown Rx Prednisone [predniSONE 10 mg 10 mg PO .TAPER #1 tab.ds.pk 11/09/21 Unknown Rx (6-Day Pack, 21 Tabs)] diphenhydrAMINE [Benadryl CAP] 25 mg PO Q8HR PRN #20 capsule 11/09/21 Unknown Rx Active Meds: Active Medications Acetaminophen (Acetaminophen 325 Mg Tab) 650 mg PO Q4H PRN PRN Reason: Pain MILD(1-3)/Fever >100.5/HUSSEIN Hydromorphone HCl (Hydromorphone 0.5 Mg/0.5 Ml Inj) 0.5 mg IV Q3H PRN PRN Reason: Pain , Severe (7-10) Last Admin: 01/12/22 08:32 Dose: 0.5 mg Sodium Chloride (Nacl 0.9% 1000 Ml) 1,000 mls @ 125 mls/hr IV DIRECT HOLLY Last Admin: 01/12/22 09:50 Dose: 125 mls/hr Metoclopramide HCl (Metoclopramide 10 Mg/2 Ml Inj) 10 mg IV Q6H PRN PRN Reason: Nausea And Vomiting Morphine Sulfate (Morphine 2 Mg/1 Ml Inj) 2 mg IV Q4H PRN PRN Reason: Pain, Moderate (4-6) Last Admin: 01/12/22 11:29 Dose: 2 mg Ondansetron HCl (Ondansetron 4 Mg/2 Ml Inj) 4 mg IV Q8H PRN PRN Reason: Nausea And Vomiting Sodium Chloride (Sodium Chloride 0.9% 10 Ml Flush Syringe) 10 ml IV BID HOLLY Last Admin: 01/12/22 10:26 Dose: 10 ml Sodium Chloride (Sodium Chloride 0.9% 10 Ml Flush Syringe) 10 ml IV PRN PRN PRN Reason: LINE FLUSH Review of Systems All systems: negative Exam - Constitutional Vitals: Temp Pulse Resp BP Pulse Ox 97.7 F 76 12 101/47 100 01/12/22 12:00 01/12/22 12:00 01/12/22 12:00 01/12/22 12:00 01/12/22 12:00 General appearance: Present: no acute distress, well-nourished - EENT Eyes: Present: PERRL, EOM intact ENT: hearing intact, clear oral mucosa, dentition normal - Neck Neck: Present: supple - Respiratory Respiratory effort: normal Respiratory: bilateral: CTA - Cardiovascular Rhythm: regular Heart Sounds: Present: S1 & S2 - Extremities Extremities: no ischemia, pulses intact Extremity abnormal: edema (right arm), erythema (right wrist), tenderness (right arm) Peripheral Pulses: within normal limits - Abdominal General gastrointestinal: Present: soft, non-tender, normal bowel sounds - Rectal Rectal Exam: deferred Results - Labs CBC & Chem 7: 01/12/22 13:05 01/12/22 06:20 Labs: Abnormal lab results 01/11/22 01/11/22 01/11/22 Range/Units 16:07 16:07 16:07 MCV (79-97) fl MCH 33 H (28-32) pg Lymph % (Auto) (13.4-35.0) % Eos % (Auto) (0.0-4.3) % PT (12.2-14.9) Sec. INR (0.87-1.13) Chloride (98-107) mmol/L Carbon Dioxide 21 L (22-30) mmol/L Glucose (65-100) mg/dL Lactic Acid 0.60 L (0.7-2.0) mmol/L Calcium (8.4-10.2) mg/dL Total Creatine Kinase (30-135) units/L Total Protein (6.3-8.2) g/dL Albumin (3.9-5) g/dL 01/11/22 01/11/22 01/11/22 Range/Units 16:07 23:02 23:02 MCV 98 H (79-97) fl MCH 33 H (28-32) pg Lymph % (Auto) (13.4-35.0) % Eos % (Auto) (0.0-4.3) % PT 15.3 H (12.2-14.9) Sec. INR (0.87-1.13) Chloride (98-107) mmol/L Carbon Dioxide (22-30) mmol/L Glucose (65-100) mg/dL Lactic Acid (0.7-2.0) mmol/L Calcium (8.4-10.2) mg/dL Total Creatine Kinase 291 H (30-135) units/L Total Protein (6.3-8.2) g/dL Albumin (3.9-5) g/dL 01/11/22 01/12/22 01/12/22 Range/Units 23:02 06:20 06:20 MCV 98 H (79-97) fl MCH (28-32) pg Lymph % (Auto) (13.4-35.0) % Eos % (Auto) (0.0-4.3) % PT 15.5 H (12.2-14.9) Sec. INR (0.87-1.13) Chloride 108.0 H (98-107) mmol/L Carbon Dioxide 19 L (22-30) mmol/L Glucose 116 H (65-100) mg/dL Lactic Acid (0.7-2.0) mmol/L Calcium 8.2 L (8.4-10.2) mg/dL Total Creatine Kinase (30-135) units/L Total Protein (6.3-8.2) g/dL Albumin (3.9-5) g/dL 01/12/22 01/12/22 01/12/22 Range/Units 06:20 13:05 13:05 MCV 100 H (79-97) fl MCH (28-32) pg Lymph % (Auto) 38.1 H (13.4-35.0) % Eos % (Auto) 5.4 H (0.0-4.3) % PT 16.1 H (12.2-14.9) Sec. INR 1.16 H (0.87-1.13) Chloride 108.1 H (98-107) mmol/L Carbon Dioxide 21 L (22-30) mmol/L Glucose 109 H (65-100) mg/dL Lactic Acid (0.7-2.0) mmol/L Calcium 8.1 L (8.4-10.2) mg/dL Total Creatine Kinase 160 H (30-135) units/L Total Protein 5.3 L D (6.3-8.2) g/dL Albumin 3.3 L (3.9-5) g/dL Assessment and Plan 31 y/o female with several allergies, admitted post snake bite and receiving Antivenom (Crofab) 1. Patient has finished four doses. Need to call Poison Control to see if anything else should be done 2. Vascular will see as well 3. Continue ICU monitoring. CCT 31 minutes.
[2022-01-12 14:20] LABS: BUN/Creatinine Ratio 18; Blood Urea Nitrogen 11 mg/dL (7-17)
[2022-01-12 14:21] LABS: Alanine Aminotransferase 8 units/L (7-56); Albumin 3.3 g/dL (3.9-5); Calcium 7.8 mg/dL (8.4-10.2); Hemolysis Index 6
--- NOTE | 2022-01-12 16:47 | Consultation ---
History of Present Illness - Reason for Consult Consult date: 01/12/22 Snakebite Requesting physician: LIBERTAD RICHMOND - History of Present Illness The patient is a 31-year-old female who presented to the emergency department after receiving a bite from a copperhead while at work yesterday. Upon presentation as she had significant swelling and pain of her right upper extremity. She was given a total of 8 vials of CroFab yesterday. Since that time she has had significant improvement of her swelling. She continues to complain of a sensation of fire in her arm and hand. She denies any numbness. She denies any fever or chills. She has no additional complaints at this time. Past History Past Medical History: GERD Past Surgical History: , tonsillectomy, Other (Adenoidectomy) Social history: no significant social history Family history: no significant family history Medications and Allergies Allergies Allergy/AdvReac Type Severity Reaction Status Date / Time ibuprofen Allergy Unknown Verified 01/12/22 07:26 iodine Allergy Unknown Verified 01/12/22 07:26 shellfish derived Allergy Unknown Verified 01/12/22 07:26 Home Medications Medication Instructions Recorded Confirmed Last Taken Type EPINEPHrine [Epipen] 0.3 mg IJ ONCE #1 11/09/21 Unknown Rx Famotidine [Pepcid] 40 mg PO QHS #5 tablet 11/09/21 Unknown Rx Prednisone [predniSONE 10 mg 10 mg PO .TAPER #1 tab.ds.pk 11/09/21 Unknown Rx (6-Day Pack, 21 Tabs)] diphenhydrAMINE [Benadryl CAP] 25 mg PO Q8HR PRN #20 capsule 11/09/21 Unknown Rx Active Meds: Active Medications Acetaminophen (Acetaminophen 325 Mg Tab) 650 mg PO Q4H PRN PRN Reason: Pain MILD(1-3)/Fever >100.5/HUSSEIN Hydromorphone HCl (Hydromorphone 0.5 Mg/0.5 Ml Inj) 0.5 mg IV Q3H PRN PRN Reason: Pain , Severe (7-10) Last Admin: 01/12/22 15:08 Dose: 0.5 mg Sodium Chloride (Nacl 0.9% 1000 Ml) 1,000 mls @ 125 mls/hr IV DIRECT HOLLY Last Admin: 01/12/22 09:50 Dose: 125 mls/hr Metoclopramide HCl (Metoclopramide 10 Mg/2 Ml Inj) 10 mg IV Q6H PRN PRN Reason: Nausea And Vomiting Morphine Sulfate (Morphine 2 Mg/1 Ml Inj) 2 mg IV Q4H PRN PRN Reason: Pain, Moderate (4-6) Last Admin: 01/12/22 11:29 Dose: 2 mg Ondansetron HCl (Ondansetron 4 Mg/2 Ml Inj) 4 mg IV Q8H PRN PRN Reason: Nausea And Vomiting Sodium Chloride (Sodium Chloride 0.9% 10 Ml Flush Syringe) 10 ml IV BID HOLLY Last Admin: 01/12/22 10:26 Dose: 10 ml Sodium Chloride (Sodium Chloride 0.9% 10 Ml Flush Syringe) 10 ml IV PRN PRN PRN Reason: LINE FLUSH Review of Systems All systems: negative Exam - Constitutional Vitals: Temp Pulse Resp BP Pulse Ox 97.5 F L 79 15 109/76 99 01/12/22 16:00 01/12/22 16:00 01/12/22 16:00 01/12/22 16:00 01/12/22 16:00 General appearance: Present: no acute distress - Neck Neck: Present: supple - Respiratory Respiratory effort: normal - Cardiovascular Rhythm: regular - Extremities Extremities: pulses intact (Palpable right radial pulse) Extremity abnormal: edema (Moderate edema of right hand and forearm), tenderness (Right wrist slightly tender) - Abdominal General gastrointestinal: Present: deferred Female genitourinary: Present: deferred - Rectal Rectal Exam: deferred - Musculoskeletal Musculoskeletal: other (Slightly decreased right key maker strength secondary to gissell n) Results - Labs CBC & Chem 7: 01/12/22 13:05 01/12/22 13:05 Labs: Abnormal lab results 01/11/22 01/11/22 01/11/22 Range/Units 16:07 16:07 16:07 MCV (79-97) fl MCH 33 H (28-32) pg Lymph % (Auto) (13.4-35.0) % Eos % (Auto) (0.0-4.3) % PT (12.2-14.9) Sec. INR (0.87-1.13) Chloride (98-107) mmol/L Carbon Dioxide 21 L (22-30) mmol/L Glucose (65-100) mg/dL Lactic Acid 0.60 L (0.7-2.0) mmol/L Calcium (8.4-10.2) mg/dL Total Creatine Kinase (30-135) units/L Total Protein (6.3-8.2) g/dL Albumin (3.9-5) g/dL 01/11/22 01/11/22 01/11/22 Range/Units 16:07 23:02 23:02 MCV 98 H (79-97) fl MCH 33 H (28-32) pg Lymph % (Auto) (13.4-35.0) % Eos % (Auto) (0.0-4.3) % PT 15.3 H (12.2-14.9) Sec. INR (0.87-1.13) Chloride (98-107) mmol/L Carbon Dioxide (22-30) mmol/L Glucose (65-100) mg/dL Lactic Acid (0.7-2.0) mmol/L Calcium (8.4-10.2) mg/dL Total Creatine Kinase 291 H (30-135) units/L Total Protein (6.3-8.2) g/dL Albumin (3.9-5) g/dL 01/11/22 01/12/22 01/12/22 Range/Units 23:02 06:20 06:20 MCV 98 H (79-97) fl MCH (28-32) pg Lymph % (Auto) (13.4-35.0) % Eos % (Auto) (0.0-4.3) % PT 15.5 H (12.2-14.9) Sec. INR (0.87-1.13) Chloride 108.0 H (98-107) mmol/L Carbon Dioxide 19 L (22-30) mmol/L Glucose 116 H (65-100) mg/dL Lactic Acid (0.7-2.0) mmol/L Calcium 8.2 L (8.4-10.2) mg/dL Total Creatine Kinase (30-135) units/L Total Protein (6.3-8.2) g/dL Albumin (3.9-5) g/dL 01/12/22 01/12/22 01/12/22 Range/Units 06:20 13:05 13:05 MCV 100 H (79-97) fl MCH (28-32) pg Lymph % (Auto) 38.1 H (13.4-35.0) % Eos % (Auto) 5.4 H (0.0-4.3) % PT 16.1 H (12.2-14.9) Sec. INR 1.16 H (0.87-1.13) Chloride 108.1 H (98-107) mmol/L Carbon Dioxide 21 L (22-30) mmol/L Glucose 109 H (65-100) mg/dL Lactic Acid (0.7-2.0) mmol/L Calcium 8.1 L (8.4-10.2) mg/dL Total Creatine Kinase 160 H (30-135) units/L Total Protein 5.3 L D (6.3-8.2) g/dL Albumin 3.3 L (3.9-5) g/dL 01/12/22 Range/Units 13:05 MCV (79-97) fl MCH (28-32) pg Lymph % (Auto) (13.4-35.0) % Eos % (Auto) (0.0-4.3) % PT (12.2-14.9) Sec. INR (0.87-1.13) Chloride 108.2 H (98-107) mmol/L Carbon Dioxide (22-30) mmol/L Glucose (65-100) mg/dL Lactic Acid (0.7-2.0) mmol/L Calcium 7.8 L (8.4-10.2) mg/dL Total Creatine Kinase 159 H (30-135) units/L Total Protein 5.2 L (6.3-8.2) g/dL Albumin 3.3 L (3.9-5) g/dL Assessment and Plan The patient is a 31-year-old female with a history of a copperhead bite to her right upper extremity. Since admission she has received 8 vials of CroFab with reversal of her swelling. She has easily palpable pulses with no evidence of compartment syndrome including normal CK levels. I have advised the patient to continue elevating her arm with her hand above the level of her heart to assist with the continued swelling. She does have some neuropathic pain which is a common side effect of the copperhead venom which can sometimes result in CRPS (Complex Regional Pain Syndrome). This typically resolves in 2 to 4 weeks but can have longer lasting effects. I discussed this with the patient who is expressed understanding. If her swelling continues to improve I suspect she can be discharged tomorrow.
[2022-01-12 17:09] LABS: Basophils # (Auto) 0.1 K/mm3 (0.0-0.1); Basophils % (Auto) 0.8 % (0.0-1.8); Eosinophils # (Auto) 0.4 K/mm3 (0.0-0.4); Eosinophils % (Auto) 6.6 % (0.0-4.3); Hematocrit 36.6 % (30.3-42.9); Hemoglobin 12.3 gm/dl (10.1-14.3); Lymphocytes # (Auto) 2.5 K/mm3 (1.2-5.4); Lymphocytes % (Auto) 36.3 % (13.4-35.0); Mean Corpuscular HGB Conc 34 % (30-34); Mean Corpuscular Volume 99 fl (79-97); Monocytes # (Auto) 0.4 K/mm3 (0.0-0.8); Monocytes % (Auto) 5.2 % (0.0-7.3); Red Blood Count 3.72 M/mm3 (3.65-5.03); Red Cell Distribution Width 13.7 % (13.2-15.2)
[2022-01-12 17:17] LABS: INR 1.14 (0.87-1.13)
[2022-01-12 17:18] LABS: Partial Thromboplastin Time 27.5 Sec. (24.2-36.6)
[2022-01-12 17:28] LABS: Alanine Aminotransferase 9 units/L (7-56); Albumin 3.2 g/dL (3.9-5); Blood Urea Nitrogen 11 mg/dL (7-17); Calcium 7.8 mg/dL (8.4-10.2); Hemolysis Index 29
[2022-01-12 17:29] LABS: BUN/Creatinine Ratio 16
[2022-01-12 18:12] LABS: Platelet Count 204 K/mm3 (140-440)
[2022-01-12] MEDS ORDERED: diphenhydrAMINE 25 MG CAP PO PRN (22:06)
[2022-01-13 00:20] LABS: Basophils % (Auto) 0.4 % (0.0-1.8); Eosinophils # (Auto) 0.5 K/mm3 (0.0-0.4); Hematocrit 33.9 % (30.3-42.9); Hemoglobin 11.4 gm/dl (10.1-14.3); Lymphocytes # (Auto) 2.5 K/mm3 (1.2-5.4); Lymphocytes % (Auto) 38.3 % (13.4-35.0); Mean Corpuscular HGB Conc 34 % (30-34); Mean Corpuscular Volume 98 fl (79-97); Monocytes # (Auto) 0.4 K/mm3 (0.0-0.8); Monocytes % (Auto) 6.2 % (0.0-7.3); Platelet Count 200 K/mm3 (140-440); Red Blood Count 3.46 M/mm3 (3.65-5.03); Red Cell Distribution Width 13.7 % (13.2-15.2)
[2022-01-13 00:31] LABS: Partial Thromboplastin Time 27.4 Sec. (24.2-36.6)
[2022-01-13 00:38] LABS: Alanine Aminotransferase 10 units/L (7-56); Blood Urea Nitrogen 11 mg/dL (7-17); Calcium 7.8 mg/dL (8.4-10.2); Hemolysis Index 2
[2022-01-13 00:53] LABS: BUN/Creatinine Ratio 16
[2022-01-13 00:56] LABS: INR 1.1 (0.87-1.13)
[2022-01-13] MEDS: SODIUM CHLORIDE 0.9% 1000 ML 1,000 ML IV SCH (03:21)
[2022-01-13] MEDS: MORPHINE 2 MG/1 ML INJ IV PRN (03:25)
[2022-01-13 07:47] LABS: Hematocrit 34.5 % (30.3-42.9); Hemoglobin 11.5 gm/dl (10.1-14.3); Mean Corpuscular HGB Conc 33 % (30-34); Mean Corpuscular Volume 98 fl (79-97); Platelet Count 199 K/mm3 (140-440); Red Blood Count 3.53 M/mm3 (3.65-5.03); Red Cell Distribution Width 13.4 % (13.2-15.2)
[2022-01-13 07:59] LABS: INR 1.09 (0.87-1.13)
[2022-01-13 08:08] LABS: Alanine Aminotransferase 10 units/L (7-56); Albumin 3.2 g/dL (3.9-5); Blood Urea Nitrogen 10 mg/dL (7-17); Calcium 7.9 mg/dL (8.4-10.2); Hemolysis Index 3
[2022-01-13 08:09] LABS: BUN/Creatinine Ratio 17
[2022-01-13] MEDS ORDERED: TETANUS,DIPH,PERTUSS(ACELL) VACCINE 0.5 ML SYRINGE IM ONE (09:00)
--- NOTE | 2022-01-13 10:33 | Discharge Summary ---
<ANKUR HART - Last Filed: 01/13/22 14:50> Providers - Providers Date of Admission: 01/11/22 18:58 Date of discharge: 01/13/22 Attending physician: JAY WEBER MD 01/11/22 Consult to Case Management [CONS] Routine Services Needed at Discharge: Patent Examiner 01/11/22 18:58 Consult to Dietitian/Nutrition [CONS] Routine Physician Instructions: Reason For Exam: Reason for Consult: Diet education Consult to Physician [CONS] Routine Comment: Dr. Leblanc spoke with Dr. Cordoba @ 1928 Consulting Provider: LIBERTAD CORDOBA Physician Instructions: Reason For Exam: snake bite 01/12/22 12:46 Consult to Physician [CONS] Routine Comment: Consulting Provider: MAGDALENA MCDERMOTT Physician Instructions: called office/ pratima Reason For Exam: snake bite Primary care physician: DVAID PEÑALOZA Hospitalization Reason for admission: Snake Bite Condition: Stable Hospital course: Interval history: This is a 31-year-old female who presents the emergency department via EMS after a she sustained a snake bite with complaints of swelling and pain starting shortly after the bite and spreading up her arm. ED contacted poison control and recommendations of infusion of CroFab 3 doses. After the administration of dose 1 patient was noted to have swelling and was given epinephrine and Benadryl. Lab work revealed hyperchloremic metabolic acidosis and slightly elevated CK. She received 1 L LR Normal Saline bolus in the ED. Patient was admitted to the hospital service with consults to critical care for close monitoring. Hospital course to date: 01/12: Patient complaining of pain to elbow, numbness from elbow to shoulder and pain in armpit of right upper extremity. Cap refill less than 3 seconds, peripheral pulses palpable. Poison control contacted and recommendations were made to elevate the arm and immobilize. Sling ordered. Neurovascular checks every 2 with serial labs (CMP/CBC/PT/INR/CK). Patient scheduled to receive last dose of CroFab this AM. 01/13: Patient remains stable on RA. JOB swelling with mild improvement with no vascular changes, cap refill less than 3 seconds and palpable radial pulses. Poison control contacted and no further recommendations given. Patient is stable for discharge. Thorough discussion with patient at the bedside discussion plan of care and Poison control recommendations were made to elevate the arm. Patient was also advise to follow up with a PCP within a week and follow up with ortho with 7 to 10days for further monitoring for compartment syndrome. Neuro: NAD -Avoid delirium -Reorientation as needed -Maintain sleep-wake cycle -As needed analgesia Cardiac: NAD -Blood pressure monitoring per protocol Respiratory: Acute hypoxic respiratory failure -Currently on NC -Wean as tolerated -Pulmanory hygenie -SPO2 monitoring GI: Obesity, mild protein calorie manutriton -PPI -Regular diet -BR: colace : Hyperchloremic metabolic acidosis, mild rhabdomyolysis -Record intake and output -Avoid nephrotoxic medications -MIVF -Trend CMP and CK ID: s/p snake bite -CCM and vascular surgery consulted, appreciate recommendations -Patient states she was bite by copperhead snake -Poison control contacted -CroFab 4 vials x 1->1625 01/11 -Crofab 2 vials at 6hr of initial dose -Crofab 2 vials at 12 hours of initial dose -Crofab 2 vials at 18 hours of initial dose -Trend CMP, CK, Fibrinogen, Coags and CBC q 6hrs per poison control -RUE measures q 4 hours -Neurovasuclar check q 2 hrs, monitor for compartment syndrome -Patient complained of pain to elbow, numbness from elbow to shoulder, and pain in armpit -communicated to poison control who recommended immobilization and elevation -sling applied -Surgery consult if needed for compartment syndrome -f/u blood culture -Monitor WBC and temperature curve Endo: NAD -Avoid hypoglycemia Heme: NAD -Trend CBC -Transfuse hemoglobin less than 7 -Monitor for signs of bleeding -Lovenox subq -SCDs to BLE while in bed Disposition: 30 STILL A PATIENT Final Discharge Diagnosis (Prints w/discharge instructions): Snake Bite Time spent for discharge: 35 Core Measure Documentation - Palliative Care Palliative Care/ Comfort Measures: Not Applicable - Core Measures Any of the following diagnoses?: none Exam - Constitutional Vitals: Temp Pulse Resp BP Pulse Ox 98.6 F 90 13 103/61 99 01/13/22 03:33 01/13/22 07:00 01/13/22 07:00 01/13/22 07:00 01/13/22 09:05 General appearance: Present: no acute distress, well-nourished, obese - EENT Eyes: Present: PERRL, EOM intact ENT: hearing intact, clear oral mucosa - Neck Neck: Present: normal ROM - Respiratory Respiratory effort: normal Respiratory: bilateral: CTA - Cardiovascular Rhythm: regular Heart Sounds: Present: S1 & S2 - Extremities Extremities: no ischemia, pulses intact, pulses symmetrical Extremity abnormal: edema - Peripheral Assessment Right Upper Extremity Edema Type: Non-pitting Edema Degree: 2+ Capillary Refill: < 3 seconds Skin Temperature: Warm Peripheral Pulses: within normal limits - Abdominal General gastrointestinal: Present: soft, non-distended, normal bowel sounds Female genitourinary: Present: deferred - Rectal Rectal Exam: deferred - Integumentary Integumentary: Present: clear, warm, dry - Musculoskeletal Musculoskeletal: right sided weakness (RUE) - Psychiatric Psychiatric: appropriate mood/affect, cooperative - Neurologic Neurologic: CNII-XII intact, moves all extremities - Allied Health Allied health notes reviewed: nursing Plan Activity: advance as tolerated Diet: regular Wound: open to air Care Plan Goals: - Follow up with a PCP within a week - Follow up with Orthopedic Surgery within 7 to 10days for further monitoring for compartment syndrome. Follow up with: DAVID PEÑALOZA MD [Primary Care Provider] - 7 Days TAMAR SAMUEL MD [Staff Physician] - 7 Days <JAY WEBER - Last Filed: 01/14/22 06:33> Providers - Providers Date of Admission: 01/11/22 18:58 Attending physician: JAY WEBER MD 01/11/22 Consult to Case Management [CONS] Routine Services Needed at Discharge: Patent Examiner 01/11/22 18:58 Consult to Dietitian/Nutrition [CONS] Routine Physician Instructions: Reason For Exam: Reason for Consult: Diet education Consult to Physician [CONS] Routine Comment: Dr. Leblanc spoke with Dr. Cordoba @ 1928 Consulting Provider: LIBERTAD CORDOBA Physician Instructions: Reason For Exam: snake bite 01/12/22 12:46 Consult to Physician [CONS] Routine Comment: Consulting Provider: MAGDALENA MCDERMOTT Physician Instructions: called office/ pratima Reason For Exam: snake bite Primary care physician: DAVID PEÑALOZA Hospitalization Hospital course: I saw and evaluated the patient. I agree with the findings and the plan of care as documented in the Nurse Practitioner's~note, with the following corrections and additions. Exam - Constitutional Vitals: Temp Pulse Resp BP Pulse Ox 98.5 F 76 15 133/79 99 01/13/22 08:00 01/13/22 11:00 01/13/22 11:00 01/13/22 11:00 01/13/22 11:00
[2022-01-13 11:10] VITALS: BP 133/79
--- NOTE | 2022-01-13 11:11 | Progress Note ---
Assessment and Plan 31 y/o female with several allergies, admitted post snake bite and receiving Antivenom (Crofab) 01/13/22: No objection to discharge pulmonary higginbotham. Follow up with her PCP. patient requesting some pain meds which is not unreasonable. 1. Patient has finished four doses. Need to call Poison Control to see if anything else should be done 2. Vascular will see as well 3. Continue ICU monitoring. CCT 31 minutes. Subjective Date of service: 01/13/22 Interval history: Swelling continues to improve. Patient wishes to go home Objective - Constitutional Vitals: Vital Signs - 12hr 01/12/22 01/12/22 01/13/22 23:48 23:49 00:00 Temperature 98.2 F Pulse Rate 60 65 Respiratory 12 13 Rate Blood Pressure 109/68 101/63 O2 Sat by Pulse 98 99 Oximetry 01/13/22 01/13/22 01/13/22 01:00 02:00 03:00 Temperature Pulse Rate 73 85 61 Respiratory 14 21 12 Rate Blood Pressure 101/63 121/85 112/75 O2 Sat by Pulse 96 95 98 Oximetry 01/13/22 01/13/22 01/13/22 03:33 04:00 05:00 Temperature 98.6 F Pulse Rate 71 71 Respiratory 17 13 Rate Blood Pressure 116/67 107/68 O2 Sat by Pulse 98 Oximetry 01/13/22 01/13/22 01/13/22 06:00 07:00 09:05 Temperature Pulse Rate 64 90 Respiratory 13 13 Rate Blood Pressure 103/61 103/61 O2 Sat by Pulse 95 99 Oximetry - Labs CBC & Chem 7: 01/13/22 07:28 01/13/22 07:28 Labs: Abnormal lab results 01/12/22 01/12/22 01/12/22 Range/Units 13:05 13:05 13:05 RBC (3.65-5.03) M/mm3 MCV 100 H (79-97) fl MCH (28-32) pg Lymph % (Auto) 38.1 H (13.4-35.0) % Eos % (Auto) 5.4 H (0.0-4.3) % Eos # (Auto) (0.0-0.4) K/mm3 PT 16.1 H (12.2-14.9) Sec. INR 1.16 H (0.87-1.13) Chloride 108.2 H (98-107) mmol/L Calcium 7.8 L (8.4-10.2) mg/dL Total Creatine Kinase 159 H (30-135) units/L Total Protein 5.2 L (6.3-8.2) g/dL Albumin 3.3 L (3.9-5) g/dL 01/12/22 01/12/22 01/12/22 Range/Units 16:38 16:38 16:38 RBC (3.65-5.03) M/mm3 MCV 99 H (79-97) fl MCH 33 H (28-32) pg Lymph % (Auto) 36.3 H (13.4-35.0) % Eos % (Auto) 6.6 H (0.0-4.3) % Eos # (Auto) (0.0-0.4) K/mm3 PT 15.9 H (12.2-14.9) Sec. INR 1.14 H (0.87-1.13) Chloride 109.0 H (98-107) mmol/L Calcium 7.8 L (8.4-10.2) mg/dL Total Creatine Kinase 159 H (30-135) units/L Total Protein 5.1 L (6.3-8.2) g/dL Albumin 3.2 L (3.9-5) g/dL 01/13/22 01/13/22 01/13/22 Range/Units 00:07 00:07 00:07 RBC 3.46 L (3.65-5.03) M/mm3 MCV 98 H (79-97) fl MCH 33 H (28-32) pg Lymph % (Auto) 38.3 H (13.4-35.0) % Eos % (Auto) 7.0 H (0.0-4.3) % Eos # (Auto) 0.5 H (0.0-0.4) K/mm3 PT 15.5 H (12.2-14.9) Sec. INR (0.87-1.13) Chloride 108.9 H (98-107) mmol/L Calcium 7.8 L (8.4-10.2) mg/dL Total Creatine Kinase (30-135) units/L Total Protein 5.2 L (6.3-8.2) g/dL Albumin 3.0 L (3.9-5) g/dL 01/13/22 01/13/22 01/13/22 Range/Units 07:28 07:28 07:28 RBC 3.53 L (3.65-5.03) M/mm3 MCV 98 H (79-97) fl MCH 33 H (28-32) pg Lymph % (Auto) (13.4-35.0) % Eos % (Auto) (0.0-4.3) % Eos # (Auto) (0.0-0.4) K/mm3 PT 15.3 H (12.2-14.9) Sec. INR (0.87-1.13) Chloride 111.6 H (98-107) mmol/L Calcium 7.9 L (8.4-10.2) mg/dL Total Creatine Kinase 164 H (30-135) units/L Total Protein 5.0 L (6.3-8.2) g/dL Albumin 3.2 L (3.9-5) g/dL Medications & Allergies - Medications Allergies/Adverse Reactions: Allergies ibuprofen Allergy (Verified 01/12/22 07:26) Unknown iodine Allergy (Verified 01/12/22 07:26) Unknown shellfish derived Allergy (Verified 01/12/22 07:26) Unknown Home Medications: Home Medications Medication Instructions Recorded Confirmed Last Taken Type EPINEPHrine [Epipen] 0.3 mg IJ ONCE #1 11/09/21 Unknown Rx Famotidine [Pepcid] 40 mg PO QHS #5 tablet 11/09/21 Unknown Rx Prednisone [predniSONE 10 mg 10 mg PO .TAPER #1 tab.ds.pk 11/09/21 Unknown Rx (6-Day Pack, 21 Tabs)] diphenhydrAMINE [Benadryl CAP] 25 mg PO Q8HR PRN #20 capsule 11/09/21 Unknown Rx Active Medications: Generic Name Dose Route Start Last Admin Trade Name Freq PRN Reason Stop Dose Admin Acetaminophen 650 mg 01/11/22 20:20 01/13/22 07:09 Acetaminophen 325 Mg Tab PO 650 mg Q4H PRN Administration Pain MILD(1-3)/Fever >100.5/HUSSEIN Diphenhydramine HCl 25 mg 01/12/22 22:06 01/12/22 22:36 Diphenhydramine 25 Mg Cap PO 25 mg Q6H PRN Administration Itching Hydromorphone HCl 0.5 mg 01/11/22 20:20 01/12/22 21:27 Hydromorphone 0.5 Mg/0.5 Ml Inj IV 0.5 mg Q3H PRN Administration Pain , Severe (7-10) Sodium Chloride 1,000 mls @ 125 mls/hr 01/11/22 20:30 01/13/22 03:21 Nacl 0.9% 1000 Ml IV 125 mls/hr DIRECT HOLLY Administration Metoclopramide HCl 10 mg 01/11/22 20:20 Metoclopramide 10 Mg/2 Ml Inj IV Q6H PRN Nausea And Vomiting Morphine Sulfate 2 mg 01/11/22 20:20 01/13/22 03:25 Morphine 2 Mg/1 Ml Inj IV 2 mg Q4H PRN Administration Pain, Moderate (4-6) Ondansetron HCl 4 mg 01/11/22 20:20 Ondansetron 4 Mg/2 Ml Inj IV Q8H PRN Nausea And Vomiting Sodium Chloride 10 ml 01/11/22 22:00 01/13/22 10:05 Sodium Chloride 0.9% 10 Ml Flush Syringe IV 10 ml BID HOLLY Administration Sodium Chloride 10 ml 01/11/22 20:20 Sodium Chloride 0.9% 10 Ml Flush Syringe IV PRN PRN LINE FLUSH HEART Score - HEART Score EKG: Non-specific Age: < 45 Risk factors: No known risk factors Troponin: Troponin T < 0.010 ng/mL (0.00-0.029) 01/11/22 16:07 Troponin: < normal limit - Critical Actions Critical Actions: 0-3 pts:0.9-1.7%risk of adverse cardiac event.Candidate for discharge
== END 2022-01-13 12:27 | disposition home or self-care (01) | DRG 913 ==
LOC: ED 15:12 → CC1 18:58
PROVIDERS: ADMIT Internal Medicine; ATTEND Internal Medicine
DX: T14.8XXA Other injury of unspecified body region, initial encounter (principal); J96.01 Acute respiratory failure with hypoxia; E44.1 Mild protein-calorie malnutrition; M62.82 Rhabdomyolysis; E87.2 Acidosis; W59.11XA Bitten by nonvenomous snake, initial encounter; Z88.8 Allergy status to other drugs, medicaments and biological substances; K21.9 Gastro-esophageal reflux disease without esophagitis; E16.2 Hypoglycemia, unspecified
CPT/HCPCS: 36415; 80048; 80053; 82140; 82550; 83880; 84484; 85025; 85027; 85384; 85610; 85730; 90715; 93005; G0378; J0840; J1200; J2270; J2405; J7030; J7050